=== PATIENT | female | born 1960 | race African-American/Black ===

== ENCOUNTER 2018-03-01 16:01 | Emergency (ER) | payer MEDICAID ==
[~2018-03-01] VITALS: Ht 152.4 cm; Wt 45.0 kg
[2018-03-01] MEDS ORDERED: IOHEXOL-300 100 ML BOTTLE ONE (16:56)
[2018-03-01] MEDS ORDERED: HALOPERIDOL LACTATE 5MG/ML VIAL IM ONE (17:45)
[2018-03-01] MEDS ORDERED: LORAZEPAM 2MG/ML CPJ IM ONE ×2 (17:45)
[2018-03-01] MEDS ORDERED: LIDOCAINE HCL 1% 20ML VIAL (Pyxis) INJ MC ONE (17:45)
[2018-03-01] MEDS ORDERED: TETANUS, DIPHTHERIA, PERTUSSIS VAC/PF 0.5ML (>7YR OLD) IM ONE (17:45)
[2018-03-01] MEDS ORDERED: BACITRACIN ZINC OINT UDPKT TOP ONE (17:45)
[2018-03-01 18:04] LABS: BASOPHILS % 0.5 % (0.0-2.0); CHLORIDE 111 mEq/L (98-107); EOSINOPHILS % 1.2 % (0.0-5.0); HEMATOCRIT. 28.9 % (36.0-48.0); HEMOGLOBIN. 9.9 g/dL (12.0-16.0); LYMPHOCYTES % 32.3 % (20.0-50.0); MEAN CORPUSCULAR HEMOGLOBIN 30.6 pg (28.0-32.0); MEAN CORPUSCULAR VOLUME 89.4 fL (81.0-99.0); MEAN PLATELET VOLUME 8.5 fl (7.4-10.4); MONOCYTES % 7.4 % (2.0-8.0); NEUTROPHILS % 58.6 % (40.0-76.0); PLATELET 215 x1000/uL (130-400); RED BLOOD CELL COUNT 3.23 mill/uL (4.2-5.4); RED CELL DISTRIBUTION WIDTH 15.4 % (11.6-14.6)
[2018-03-01] MEDS ORDERED: OLANZAPINE 10 MG/VIAL IM ONE (18:30)
[2018-03-01] MEDS ORDERED: LIDOCAINE HCL/PF 1% 10 MG/ML 30ML VIAL IJ SCH (19:30)
[2018-03-01 22:55] VITALS: BP 105/71
== END 2018-03-01 23:05 ==
LOC: ER 16:24
DX: S01.81XA Laceration without foreign body of other part of head, initial encounter (principal); J32.2 Chronic ethmoidal sinusitis; M85.2 Hyperostosis of skull; F41.9 Anxiety disorder, unspecified; E11.9 Type 2 diabetes mellitus without complications; K21.9 Gastro-esophageal reflux disease without esophagitis; E78.00 Pure hypercholesterolemia, unspecified; F20.9 Schizophrenia, unspecified; G40.909 Epilepsy, unspecified, not intractable, without status epilepticus; I12.9 Hypertensive chronic kidney disease with stage 1 through stage 4 chronic kidney disease, or unspecified chronic kidney disease; N18.9 Chronic kidney disease, unspecified; F32.9 Major depressive disorder, single episode, unspecified; W01.0XXA Fall on same level from slipping, tripping and stumbling without subsequent striking against object, initial encounter; Y93.89 Activity, other specified; Y92.89 Other specified places as the place of occurrence of the external cause
CPT/HCPCS: 36415; 70450; 70486; 80053; 85025; 90471; 90715; 93005; 96372; 99285; J1630; J2060; J3490; Q9967; X7700; Z7610

== ENCOUNTER 2018-07-25 10:16 | Emergency (ER) | payer MEDICAID ==
[~2018-07-25] VITALS: Ht 162.6 cm; Wt 55.0 kg
[2018-07-25] MEDS ORDERED: TETANUS, DIPHTHERIA, PERTUSSIS VAC/PF 0.5ML (>7YR OLD) IM ONE (10:45)
[2018-07-25] MEDS ORDERED: LIDOCAINE/EPINEPHR/TETRACAINE 3ML TP ONE ×2 (10:45)
[2018-07-25 11:40] LABS: BASOPHILS % 0.5 % (0.0-2.0); CHLORIDE 107 mEq/L (98-107); EOSINOPHILS % 0.9 % (0.0-5.0); HEMATOCRIT. 35.4 % (36.0-48.0); HEMOGLOBIN. 11.7 g/dL (12.0-16.0); LYMPHOCYTES % 36.8 % (20.0-50.0); MEAN CORPUSCULAR HEMOGLOBIN 29.8 pg (28.0-32.0); MEAN CORPUSCULAR VOLUME 89.7 fL (81.0-99.0); MEAN PLATELET VOLUME 9.3 fl (7.4-10.4); MONOCYTES % 7.2 % (2.0-8.0); NEUTROPHILS % 54.6 % (40.0-76.0); PLATELET 171 x1000/uL (130-400); RED BLOOD CELL COUNT 3.94 mill/uL (4.2-5.4); RED CELL DISTRIBUTION WIDTH 13.3 % (11.6-14.6)
[2018-07-25] MEDS ORDERED: MIDAZOLAM HCL 2 MG/2 ML VIAL IV ONE (11:45)
[2018-07-25 15:08] VITALS: BP 125/89
== END 2018-07-25 15:28 ==
LOC: ER 10:36
DX: S01.01XA Laceration without foreign body of scalp, initial encounter (principal); F41.9 Anxiety disorder, unspecified; E11.9 Type 2 diabetes mellitus without complications; E78.00 Pure hypercholesterolemia, unspecified; I10 Essential (primary) hypertension; N28.9 Disorder of kidney and ureter, unspecified; F20.9 Schizophrenia, unspecified; R56.9 Unspecified convulsions; F32.9 Major depressive disorder, single episode, unspecified; K21.9 Gastro-esophageal reflux disease without esophagitis; R62.7 Adult failure to thrive; W18.39XA Other fall on same level, initial encounter; Y93.89 Activity, other specified; Y92.89 Other specified places as the place of occurrence of the external cause; Y99.8 Other external cause status
CPT/HCPCS: 12002; 36415; 70450; 71045; 80053; 83880; 84484; 85025; 90471; 90715; 93005; 96374; 99285; J2250; Z7610

== ENCOUNTER 2020-01-31 09:01 | Inpatient (IN) | payer MEDICAID ==
[~2020-01-31] VITALS: Ht 165.1 cm; Wt 47.2 kg
[2020-01-31] VITALS (47 sets, daily range): BP systolic 82–112; BP diastolic 46–80
[2020-01-31] MEDS ORDERED: SODIUM CHLORIDE 0.9% 1000ML BAG (SEPSIS BOLUS) IV ONE (09:45)
[2020-01-31] MEDS ORDERED: PIPERACILLIN/TAZ 3.375G PREMIX 50 ML IV ONE (09:45)
[2020-01-31 09:49] LABS: HEMATOCRIT. 33.3 % (36.0-48.0); HEMOGLOBIN. 11.1 g/dL (12.0-16.0); MEAN CORPUSCULAR HEMOGLOBIN 29.5 pg (28.0-32.0); MEAN CORPUSCULAR VOLUME 88.2 fL (81.0-99.0); MEAN PLATELET VOLUME 9.5 fl (7.4-10.4); PLATELET 244 x1000/uL (130-400); RED BLOOD CELL COUNT 3.77 mill/uL (4.2-5.4); RED CELL DISTRIBUTION WIDTH 14.6 % (11.6-14.6)
[2020-01-31 09:51] LABS: CHLORIDE 111 mEq/L (98-107)
[2020-01-31 09:53] LABS: PROTHROMBIN TIME 10.4 sec (9.6-11.0)
[2020-01-31 09:57] LABS: CLARITY URINE CLEAR (CLEAR); COLOR URINE YELLOW (YELLOW); KETONES URINE NEGATIVE (NEGATIVE); LEUKOCYTE ESTERASE URINE NEGATIVE (NEGATIVE); NITRITE URINE NEGATIVE (NEGATIVE); OCCULT BLOOD URINE NEGATIVE (NEGATIVE); PH URINE 7.5 (4.5-8.0); PROTEIN URINE 1+ (NEGATIVE); SPECIFIC GRAVITY URINE 1.018 (1.005-1.030)
[2020-01-31] MEDS ORDERED: ACETAMINOPHEN 650MG SUPP PR ONE (10:15)
[2020-01-31] MEDS ORDERED: HALOPERIDOL LACTATE 5MG/ML VIAL IM ONE (10:15)
[2020-01-31 10:43] LABS: PLATELET ESTIMATE NORMAL
[2020-01-31] MEDS ORDERED: OLANZAPINE 10 MG/VIAL IM ONE (10:45)
[2020-01-31] MEDS ORDERED: LORAZEPAM 2MG/ML CPJ IV ONE (11:15)
[2020-01-31] MEDS ORDERED: SUCCINYLCHOLINE CHLORIDE 200MG/10ML IV ONE (11:44)
[2020-01-31] MEDS ORDERED: ETOMIDATE 2MG/ML 10ML VIAL IV ONE (11:44)
[2020-01-31] MEDS ORDERED: NOREPINEPHRINE 4MG/250ML PMX 250 ML IV ONE (11:53)
[2020-01-31] MEDS ORDERED: NOREPINEPHRINE 4 MG in DEXT 5% WATER 246 ML IV ONE (12:00)
[2020-01-31] MEDS ORDERED: PROPOFOL 10MG/ML 100ML 100 ML IV ONE (12:00)
[2020-01-31] MEDS ORDERED: CEFTRIAXONE 1 G PREMIX 50 ML IV SCH (12:15)
[2020-01-31] MEDS ORDERED: METOCLOPRAMIDE HCL 10MG/2ML VIAL IV PRN (12:15)
[2020-01-31] MEDS ORDERED: PHENYLEPHRINE 10 MG in DEXT 5% WATER 249 ML IV PRN (12:15)
[2020-01-31 13:42] LABS: BG BASE EXCESS -4.4 mmol/L (-2.0-2.0); BG CARBOXYHEMOGLOBIN 0.2 % (0.5-1.5); BG DEOXYHEMOGLOBIN 0.4 % (0.0-5.0); BG HCO3 ACT 19.8 mmol/L (22.0-26.0); BG METHEMOGLOBIN 0.3 % (0.0-1.5); BG OXYGEN SATURATION 99.6 % (92.0-98.5); BG OXYHEMOGLOBIN 99.1 % (94.0-97.0); BG PCO2 33.2 mmHg (35.0-45.0); BG PH 7.394 (7.350-7.450); BG PO2 427.8 mmHg (75.0-100.0); BG SAMPLE SITE RIGHT BRACHIAL; BG TIDAL VOLUME(mL) 400 mL; BG TOTAL HEMOGLOBIN 10.4 g/dL (12.0-18.0); BG VENT MODE VENT - A/C; BG VENT RATE 16 set
[2020-01-31] MEDS ORDERED: CEFTRIAXONE 1,000 MG in DEXTROSE 5% WATER 50 ML IV SCH (14:00)
[2020-01-31] MEDS ORDERED: PROPOFOL 10MG/ML 100ML 100 ML IV PRN (14:00)
[2020-01-31] MEDS ORDERED: PHENYLEPHRINE 40 MG in DEXT 5% WATER 246 ML IV PRN (14:15)
[2020-01-31] MEDS ORDERED: SODIUM CHLORIDE 0.45% 1,000 ML IV SCH (14:30)
[2020-01-31] MEDS ORDERED: AZITHROMYCIN 500 MG in DEXT 5% WATER 250 ML IV NR ×3 (15:00→19:30)
[2020-01-31] MEDS ORDERED: BENZ1TAB7 PO (15:12)
[2020-01-31] MEDS ORDERED: TOPI100T37 PO (15:12)
[2020-01-31] MEDS ORDERED: FERR325T6 MT (15:12)
[2020-01-31] MEDS ORDERED: DIVA250T4 PO (15:16)
[2020-01-31] MEDS ORDERED: SERT50TA PO (15:16)
[2020-01-31] MEDS ORDERED: QUET200T MT (15:16)
[2020-01-31] MEDS: CEFEPIME 1,000 MG in DEXTROSE 5% WATER 50 ML IV SCH (17:59)
[2020-01-31] MEDS: THIAMINE HCL 100MG TABLET PO SCH (17:59)
[2020-01-31] MEDS: ENOXAPARIN 30MG/0.3ML SYR SUBCUT SCH (18:00)
[2020-01-31] MEDS: ASCORBIC ACID 500 MG TABLET PO SCH (20:54)
[2020-01-31] MEDS ORDERED: HYDROXYCHLOROQUINE SULFATE 200MG TABLET PO SCH (21:00)
[2020-02-01] VITALS (94 sets, daily range): BP systolic 77–144; BP diastolic 40–86
[2020-02-01] MEDS: CEFEPIME 1,000 MG in DEXTROSE 5% WATER 50 ML IV SCH ×2 (04:43→16:11)
[2020-02-01 05:45] LABS: BASOPHILS % 0.1 % (0.0-2.0); HEMATOCRIT. 27.9 % (36.0-48.0); HEMOGLOBIN. 9.4 g/dL (12.0-16.0); LYMPHOCYTES % 8.4 % (20.0-50.0); MEAN CORPUSCULAR HEMOGLOBIN 29.3 pg (28.0-32.0); MEAN CORPUSCULAR VOLUME 86.8 fL (81.0-99.0); MEAN PLATELET VOLUME 8.3 fl (7.4-10.4); MONOCYTES % 1.7 % (2.0-8.0); NEUTROPHILS % 89.8 % (40.0-76.0); PLATELET 250 x1000/uL (130-400); RED BLOOD CELL COUNT 3.22 mill/uL (4.2-5.4); RED CELL DISTRIBUTION WIDTH 14.5 % (11.6-14.6)
[2020-02-01 05:53] LABS: CHLORIDE 115 mEq/L (98-107)
[2020-02-01] MEDS ORDERED: LIDOCAINE HCL 1% 20ML VIAL (Pyxis) INJ ONE (08:14)
[2020-02-01] MEDS: ASCORBIC ACID 500 MG TABLET PO SCH ×2 (09:15→21:18)
[2020-02-01] MEDS: THIAMINE HCL 100MG TABLET PO SCH ×2 (09:15→16:11)
[2020-02-01] MEDS: PANTOPRAZOLE SODIUM 40 MG/VIAL IV SCH (09:15)
[2020-02-01] MEDS: ZINC SULFATE 220 MG ( 50 ) CAPSULE PO SCH (09:15)
[2020-02-01 10:12] LABS: BG BASE EXCESS 0.2 mmol/L (-2.0-2.0); BG CARBOXYHEMOGLOBIN 0.3 % (0.5-1.5); BG DEOXYHEMOGLOBIN 1.1 % (0.0-5.0); BG FRACTION INSPIRED OXYGEN 50; BG HCO3 ACT 23.4 mmol/L (22.0-26.0); BG METHEMOGLOBIN 0.1 % (0.0-1.5); BG OXYGEN SATURATION 98.9 % (92.0-98.5); BG OXYHEMOGLOBIN 98.5 % (94.0-97.0); BG PCO2 32.4 mmHg (35.0-45.0); BG PH 7.476 (7.350-7.450); BG PO2 141.4 mmHg (75.0-100.0); BG SAMPLE SITE RIGHT BRACHIAL; BG TIDAL VOLUME(mL) 400 mL; BG TOTAL HEMOGLOBIN 9.7 g/dL (12.0-18.0); BG VENT MODE VENT - A/C; BG VENT RATE 16 set
[2020-02-01] MEDS: NOREPINEPHRINE 4 MG in DEXT 5% WATER 246 ML IV PRN (12:04)
[2020-02-01] MEDS: DEXT 5%/0.45% NACL 1000ML 1,000 ML IV SCH (12:04)
[2020-02-01] MEDS ORDERED: AZITHROMYCIN 250 MG in DEXT 5% WATER 250 ML IV SCH ×2 (15:00→18:00)
[2020-02-01] MEDS: PROPOFOL 10MG/ML 100ML 100 ML IV PRN (15:25)
[2020-02-01] MEDS: ENOXAPARIN 30MG/0.3ML SYR SUBCUT SCH (16:11)
[2020-02-01] MEDS ORDERED: HYDROXYCHLOROQUINE SULFATE 200MG TABLET PO SCH (21:00)
[2020-02-01] MEDS: ACETAMINOPHEN 325MG TABLET PO PRN (21:15)
[2020-02-01] MEDS ORDERED: MORPHINE SULFATE 2 MG/ML CPJ (NOT FOR IM USE) IV PRN (21:45)
[2020-02-02] VITALS (93 sets, daily range): BP systolic 56–152; BP diastolic 34–91
[2020-02-02] MEDS: NOREPINEPHRINE 4 MG in DEXT 5% WATER 246 ML IV PRN ×2 (00:03→08:55)
[2020-02-02] MEDS: CEFEPIME 1,000 MG in DEXTROSE 5% WATER 50 ML IV SCH ×2 (03:08→15:58)
[2020-02-02 04:53] LABS: HEMOGLOBIN. 10.1 g/dL (12.0-16.0); MEAN CORPUSCULAR HEMOGLOBIN 29.4 pg (28.0-32.0); MEAN CORPUSCULAR VOLUME 87.4 fL (81.0-99.0); MEAN PLATELET VOLUME 7.8 fl (7.4-10.4); PLATELET 282 x1000/uL (130-400); RED BLOOD CELL COUNT 3.43 mill/uL (4.2-5.4); RED CELL DISTRIBUTION WIDTH 14.6 % (11.6-14.6)
[2020-02-02 05:31] LABS: CHLORIDE 109 mEq/L (98-107)
[2020-02-02 05:45] LABS: PHOSPHORUS 2.8 mg/dL (2.5-4.9)
[2020-02-02 07:59] LABS: BG BASE EXCESS 0.2 mmol/L (-2.0-2.0); BG CARBOXYHEMOGLOBIN 0.3 % (0.5-1.5); BG DEOXYHEMOGLOBIN 1.1 % (0.0-5.0); BG HCO3 ACT 23.4 mmol/L (22.0-26.0); BG METHEMOGLOBIN 0.1 % (0.0-1.5); BG OXYGEN SATURATION 98.9 % (92.0-98.5); BG OXYHEMOGLOBIN 98.5 % (94.0-97.0); BG PCO2 32.9 mmHg (35.0-45.0); BG PO2 137.5 mmHg (75.0-100.0); BG SAMPLE SITE RIGHT BRACHIAL; BG TIDAL VOLUME(mL) 400 mL; BG TOTAL HEMOGLOBIN 10.5 g/dL (12.0-18.0); BG VENT MODE VENT - A/C; BG VENT RATE 12 set
[2020-02-02 08:33] LABS: ATYPICAL LYMPHOCYTES 1; PLATELET ESTIMATE NORMAL
[2020-02-02] MEDS: ZINC SULFATE 220 MG ( 50 ) CAPSULE PO SCH (08:52)
[2020-02-02] MEDS: ASCORBIC ACID 500 MG TABLET PO SCH ×2 (08:53→22:01)
[2020-02-02] MEDS: THIAMINE HCL 100MG TABLET PO SCH ×2 (08:53→17:18)
[2020-02-02] MEDS: PANTOPRAZOLE SODIUM 40 MG/VIAL IV SCH (08:53)
[2020-02-02] MEDS: PROPOFOL 10MG/ML 100ML 100 ML IV PRN ×2 (08:54→21:06)
[2020-02-02] MEDS ORDERED: FUROSEMIDE 40MG/4ML VIAL IVP NR (11:45)
[2020-02-02] MEDS: DEXT 5%/0.45% NACL 1000ML 1,000 ML IV SCH (12:24)
[2020-02-02] MEDS: ENOXAPARIN 30MG/0.3ML SYR SUBCUT SCH (15:58)
[2020-02-02] MEDS: NOREPINEPHRINE 8 MG in DEXT 5% WATER 242 ML IV PRN (21:03)
[2020-02-02] MEDS ORDERED: DOPAMINE 800MG PREMIX (DOUBLE) 250 ML IV PRN (21:45)
[2020-02-02] MEDS: EPINEPHRINE 1 MG in SODIUM CHLORIDE 0.9% 249 ML IV PRN (22:18)
[2020-02-03] VITALS (92 sets, daily range): BP systolic 74–145; BP diastolic 51–93
[2020-02-03] MEDS: NOREPINEPHRINE 8 MG in DEXT 5% WATER 242 ML IV PRN ×3 (01:51→17:21)
[2020-02-03] MEDS: DEXT 5%/0.45% NACL 1000ML 1,000 ML IV SCH (01:52)
[2020-02-03] MEDS: CEFEPIME 1,000 MG in DEXTROSE 5% WATER 50 ML IV SCH ×2 (03:45→15:33)
[2020-02-03] MEDS: EPINEPHRINE 1 MG in SODIUM CHLORIDE 0.9% 249 ML IV PRN (05:07)
[2020-02-03 05:42] LABS: HEMATOCRIT. 33.2 % (36.0-48.0); HEMOGLOBIN. 10.9 g/dL (12.0-16.0); MEAN CORPUSCULAR HEMOGLOBIN 28.6 pg (28.0-32.0); MEAN CORPUSCULAR VOLUME 87.1 fL (81.0-99.0); PLATELET 212 x1000/uL (130-400); RED BLOOD CELL COUNT 3.82 mill/uL (4.2-5.4)
[2020-02-03 05:45] LABS: CHLORIDE 106 mEq/L (98-107)
[2020-02-03] MEDS ORDERED: EPINEPHRINE 1 MG in SODIUM CHLORIDE 0.9% 249 ML IV PRN (05:45)
[2020-02-03 05:51] LABS: PHOSPHORUS 2.1 mg/dL (2.5-4.9)
[2020-02-03] MEDS: EPINEPHRINE 4 MG in SODIUM CHLORIDE 0.9% 246 ML IV PRN (06:58)
[2020-02-03] MEDS: ASCORBIC ACID 500 MG TABLET PO SCH ×2 (08:22→20:03)
[2020-02-03] MEDS: THIAMINE HCL 100MG TABLET PO SCH ×2 (08:23→17:25)
[2020-02-03] MEDS: PANTOPRAZOLE SODIUM 40 MG/VIAL IV SCH (08:23)
[2020-02-03] MEDS: ZINC SULFATE 220 MG ( 50 ) CAPSULE PO SCH (08:23)
[2020-02-03 08:27] LABS: BG BASE EXCESS 0.6 mmol/L (-2.0-2.0); BG CARBOXYHEMOGLOBIN 0.3 % (0.5-1.5); BG DEOXYHEMOGLOBIN 1.3 % (0.0-5.0); BG FRACTION INSPIRED OXYGEN 60; BG METHEMOGLOBIN 0.2 % (0.0-1.5); BG OXYGEN SATURATION 98.7 % (92.0-98.5); BG OXYHEMOGLOBIN 98.2 % (94.0-97.0); BG PCO2 34.3 mmHg (35.0-45.0); BG PH 7.463 (7.350-7.450); BG PO2 129.4 mmHg (75.0-100.0); BG SAMPLE SITE RIGHT BRACHIAL; BG TIDAL VOLUME(mL) 400 mL; BG TOTAL HEMOGLOBIN 11.3 g/dL (12.0-18.0); BG VENT MODE VENT - A/C; BG VENT RATE 12 set
[2020-02-03] MEDS: PROPOFOL 10MG/ML 100ML 100 ML IV PRN (10:49)
[2020-02-03] MEDS ORDERED: POTASSIUM CHLORIDE 20MEQ TABLET SR PO SCH (11:30)
[2020-02-03] MEDS ORDERED: FUROSEMIDE 40MG/4ML VIAL IVP SCH (11:30)
[2020-02-03] MEDS ORDERED: FENTANYL CITRATE/PF 500 MCG in SODIUM CHLORIDE 0.9% 40 ML IV PRN (11:45)
[2020-02-03] MEDS ORDERED: PROPOFOL 10MG/ML 100ML 100 ML IV PRN (12:00)
[2020-02-03] MEDS: METHYLPREDNISOLONE SOD SUCC 40 MG/ML VIAL IV SCH ×2 (12:30→23:53)
[2020-02-03 12:46] LABS: PLATELET ESTIMATE NORMAL
[2020-02-03] MEDS ORDERED: MAGNESIUM 2 G PREMIX 50 ML IV SCH (13:00)
[2020-02-03] MEDS ORDERED: FENTANYL CITRATE/PF 1,000 MCG in SODIUM CHLORIDE 0.9% 100 ML IV PRN (14:30)
[2020-02-03] MEDS: ENOXAPARIN 30MG/0.3ML SYR SUBCUT SCH (15:32)
[2020-02-03] MEDS: FENTANYL CITRATE/PF 1,000 MCG in SODIUM CHLORIDE 0.9% 80 ML IV PRN ×2 (16:01→23:40)
[2020-02-03] MEDS: ACETAMINOPHEN 325MG TABLET PO PRN (17:43)
[2020-02-03] MEDS: NOREPINEPHRINE 32 MG in DEXT 5% WATER 468 ML IV PRN (21:29)
[2020-02-04] VITALS (94 sets, daily range): BP systolic 68–130; BP diastolic 37–95
[2020-02-04] MEDS: EPINEPHRINE 4 MG in SODIUM CHLORIDE 0.9% 246 ML IV PRN ×2 (02:35→18:09)
[2020-02-04] MEDS: CEFEPIME 1,000 MG in DEXTROSE 5% WATER 50 ML IV SCH ×2 (03:30→15:30)
[2020-02-04 05:48] LABS: CHLORIDE 106 mEq/L (98-107)
[2020-02-04 05:52] LABS: HEMATOCRIT. 33.1 % (36.0-48.0); HEMOGLOBIN. 11.2 g/dL (12.0-16.0); MEAN CORPUSCULAR HEMOGLOBIN 29.9 pg (28.0-32.0); MEAN CORPUSCULAR VOLUME 88.6 fL (81.0-99.0); RED BLOOD CELL COUNT 3.73 mill/uL (4.2-5.4); RED CELL DISTRIBUTION WIDTH 14.7 % (11.6-14.6)
[2020-02-04 05:58] LABS: PHOSPHORUS 3.2 mg/dL (2.5-4.9)
[2020-02-04] MEDS: FENTANYL CITRATE/PF 1,000 MCG in SODIUM CHLORIDE 0.9% 80 ML IV PRN ×3 (06:19→21:29)
[2020-02-04 08:47] LABS: BG BASE EXCESS -2.1 mmol/L (-2.0-2.0); BG CARBOXYHEMOGLOBIN 0.3 % (0.5-1.5); BG DEOXYHEMOGLOBIN 4.3 % (0.0-5.0); BG FRACTION INSPIRED OXYGEN 40; BG HCO3 ACT 23.6 mmol/L (22.0-26.0); BG METHEMOGLOBIN 0.1 % (0.0-1.5); BG OXYGEN SATURATION 95.7 % (92.0-98.5); BG OXYHEMOGLOBIN 95.3 % (94.0-97.0); BG PCO2 44.2 mmHg (35.0-45.0); BG PH 7.345 (7.350-7.450); BG SAMPLE SITE RIGHT BRACHIAL; BG TIDAL VOLUME(mL) 400 mL; BG TOTAL HEMOGLOBIN 11.6 g/dL (12.0-18.0); BG VENT MODE VENT - A/C; BG VENT RATE 12 set
[2020-02-04] MEDS ORDERED: DEXTROSE 50% WATER 50ML SYRINGE IV PRN (09:30)
[2020-02-04] MEDS: PANTOPRAZOLE SODIUM 40 MG/VIAL IV SCH (09:44)
[2020-02-04] MEDS: THIAMINE HCL 100MG TABLET PO SCH ×2 (09:44→17:00)
[2020-02-04] MEDS: ZINC SULFATE 220 MG ( 50 ) CAPSULE PO SCH (09:44)
[2020-02-04] MEDS: ASCORBIC ACID 500 MG TABLET PO SCH ×2 (10:13→20:42)
[2020-02-04 11:57] LABS: PLATELET 166 x1000/uL (130-400)
[2020-02-04] MEDS: BLOOD SUGAR DIAGNOSTIC STRIP TEST SCH ×3 (11:59→21:08)
[2020-02-04] MEDS: NOREPINEPHRINE 32 MG in DEXT 5% WATER 468 ML IV PRN (12:49)
[2020-02-04] MEDS: METHYLPREDNISOLONE SOD SUCC 40 MG/ML VIAL IV SCH (12:50)
[2020-02-04] MEDS: INSULIN LISPRO 100 UNITS/ML SUBCUT SCH ×3 (12:52→21:24)
[2020-02-04] MEDS: ENOXAPARIN 30MG/0.3ML SYR SUBCUT SCH (15:30)
[2020-02-05] VITALS (97 sets, daily range): BP systolic 56–144; BP diastolic 28–92
[2020-02-05] MEDS: METHYLPREDNISOLONE SOD SUCC 40 MG/ML VIAL IV SCH ×3 (00:11→23:11)
[2020-02-05] MEDS: CEFEPIME 1,000 MG in DEXTROSE 5% WATER 50 ML IV SCH ×2 (04:25→16:02)
[2020-02-05] MEDS: FENTANYL CITRATE/PF 1,000 MCG in SODIUM CHLORIDE 0.9% 80 ML IV PRN ×2 (04:27→11:17)
[2020-02-05] MEDS: INSULIN LISPRO 100 UNITS/ML SUBCUT SCH ×4 (06:34→21:12)
[2020-02-05] MEDS: BLOOD SUGAR DIAGNOSTIC STRIP TEST SCH ×4 (06:49→20:53)
[2020-02-05] MEDS ORDERED: LIDOCAINE HCL 1% 20ML VIAL (Pyxis) INJ ONE (06:59)
[2020-02-05 08:36] LABS: BG BASE EXCESS -1.3 mmol/L (-2.0-2.0); BG CARBOXYHEMOGLOBIN 0.3 % (0.5-1.5); BG DEOXYHEMOGLOBIN 2.8 % (0.0-5.0); BG HCO3 ACT 24.4 mmol/L (22.0-26.0); BG METHEMOGLOBIN 0.3 % (0.0-1.5); BG OXYGEN SATURATION 97.2 % (92.0-98.5); BG OXYHEMOGLOBIN 96.6 % (94.0-97.0); BG PCO2 45.3 mmHg (35.0-45.0); BG PH 7.349 (7.350-7.450); BG PO2 101.1 mmHg (75.0-100.0); BG SAMPLE SITE RIGHT BRACHIAL; BG TIDAL VOLUME(mL) 400 mL; BG TOTAL HEMOGLOBIN 10.7 g/dL (12.0-18.0); BG VENT MODE VENT - A/C; BG VENT RATE 12 set
[2020-02-05] MEDS: NOREPINEPHRINE 32 MG in DEXT 5% WATER 468 ML IV PRN (08:52)
[2020-02-05] MEDS: THIAMINE HCL 100MG TABLET PO SCH ×2 (09:00→17:00)
[2020-02-05] MEDS: ASCORBIC ACID 500 MG TABLET PO SCH ×2 (09:00→20:53)
[2020-02-05] MEDS: ZINC SULFATE 220 MG ( 50 ) CAPSULE PO SCH (09:00)
[2020-02-05] MEDS: PANTOPRAZOLE SODIUM 40 MG/VIAL IV SCH (10:12)
[2020-02-05 12:47] LABS: BG BASE EXCESS 0.5 mmol/L (-2.0-2.0); BG CARBOXYHEMOGLOBIN 0.3 % (0.5-1.5); BG DEOXYHEMOGLOBIN 2.6 % (0.0-5.0); BG HCO3 ACT 26.5 mmol/L (22.0-26.0); BG METHEMOGLOBIN 0.3 % (0.0-1.5); BG OXYGEN SATURATION 97.4 % (92.0-98.5); BG OXYHEMOGLOBIN 96.8 % (94.0-97.0); BG PCO2 48.6 mmHg (35.0-45.0); BG PH 7.355 (7.350-7.450); BG PO2 102.2 mmHg (75.0-100.0); BG SAMPLE SITE RIGHT BRACHIAL; BG TIDAL VOLUME(mL) 400 mL; BG TOTAL HEMOGLOBIN 11.5 g/dL (12.0-18.0); BG VENT MODE VENT - SIMV; BG VENT RATE 10 set
[2020-02-05] MEDS: METOCLOPRAMIDE HCL 10MG/2ML VIAL IV SCH ×3 (13:30→23:11)
[2020-02-05] MEDS: ENOXAPARIN 30MG/0.3ML SYR SUBCUT SCH (14:00)
[2020-02-05 15:29] LABS: BG BASE EXCESS 0.1 mmol/L (-2.0-2.0); BG CARBOXYHEMOGLOBIN 0.1 % (0.5-1.5); BG DEOXYHEMOGLOBIN 1.8 % (0.0-5.0); BG FRACTION INSPIRED OXYGEN 40; BG HCO3 ACT 25.4 mmol/L (22.0-26.0); BG METHEMOGLOBIN 0.1 % (0.0-1.5); BG OXYGEN SATURATION 98.2 % (92.0-98.5); BG PCO2 44.1 mmHg (35.0-45.0); BG PH 7.378 (7.350-7.450); BG PRESSURE SUPPORT 12; BG SAMPLE SITE RIGHT RADIAL; BG TIDAL VOLUME(mL) 600 mL; BG TOTAL HEMOGLOBIN 11.3 g/dL (12.0-18.0); BG VENT MODE VENT - SIMV; BG VENT RATE 6 set
[2020-02-05 17:47] LABS: BG BASE EXCESS 0.6 mmol/L (-2.0-2.0); BG CARBOXYHEMOGLOBIN 0.3 % (0.5-1.5); BG DEOXYHEMOGLOBIN 1.7 % (0.0-5.0); BG FRACTION INSPIRED OXYGEN 40; BG HCO3 ACT 26.6 mmol/L (22.0-26.0); BG METHEMOGLOBIN 0.1 % (0.0-1.5); BG OXYGEN SATURATION 98.3 % (92.0-98.5); BG OXYHEMOGLOBIN 97.9 % (94.0-97.0); BG PCO2 48.9 mmHg (35.0-45.0); BG PH 7.354 (7.350-7.450); BG PO2 128.1 mmHg (75.0-100.0); BG PRESSURE SUPPORT 12; BG SAMPLE SITE RIGHT RADIAL; BG TOTAL HEMOGLOBIN 11.2 g/dL (12.0-18.0); BG VENT MODE VENT - CPAP
[2020-02-06] VITALS (94 sets, daily range): BP systolic 67–146; BP diastolic 38–92
[2020-02-06] MEDS: METOCLOPRAMIDE HCL 10MG/2ML VIAL IV SCH ×4 (05:30→23:54)
[2020-02-06 05:43] LABS: HEMATOCRIT. 31.2 % (36.0-48.0); HEMOGLOBIN. 10.5 g/dL (12.0-16.0); MEAN CORPUSCULAR HEMOGLOBIN 29.4 pg (28.0-32.0); MEAN CORPUSCULAR VOLUME 86.9 fL (81.0-99.0); MEAN PLATELET VOLUME 9.8 fl (7.4-10.4); PLATELET 105 x1000/uL (130-400); RED BLOOD CELL COUNT 3.59 mill/uL (4.2-5.4)
[2020-02-06] MEDS: BLOOD SUGAR DIAGNOSTIC STRIP TEST SCH ×4 (06:26→21:41)
[2020-02-06] MEDS: INSULIN LISPRO 100 UNITS/ML SUBCUT SCH ×4 (06:26→21:00)
[2020-02-06 06:57] LABS: CHLORIDE 108 mEq/L (98-107)
[2020-02-06] MEDS: PANTOPRAZOLE SODIUM 40 MG/VIAL IV SCH (08:28)
[2020-02-06] MEDS: ZINC SULFATE 220 MG ( 50 ) CAPSULE PO SCH (08:28)
[2020-02-06] MEDS: THIAMINE HCL 100MG TABLET PO SCH ×2 (08:28→17:03)
[2020-02-06] MEDS: ASCORBIC ACID 500 MG TABLET PO SCH ×2 (08:30→21:41)
[2020-02-06] MEDS: NOREPINEPHRINE 32 MG in DEXT 5% WATER 468 ML IV PRN (08:32)
[2020-02-06 10:06] LABS: BG BASE EXCESS 1.3 mmol/L (-2.0-2.0); BG CARBOXYHEMOGLOBIN 0.4 % (0.5-1.5); BG DEOXYHEMOGLOBIN 9.3 % (0.0-5.0); BG FRACTION INSPIRED OXYGEN 36; BG HCO3 ACT 23.3 mmol/L (22.0-26.0); BG METHEMOGLOBIN 0.3 % (0.0-1.5); BG OXYGEN SATURATION 90.6 % (92.0-98.5); BG PCO2 28.6 mmHg (35.0-45.0); BG PH 7.528 (7.350-7.450); BG PO2 55.1 mmHg (75.0-100.0); BG SAMPLE SITE RIGHT BRACHIAL; BG TOTAL HEMOGLOBIN 11.7 g/dL (12.0-18.0); BG VENT MODE NASAL CANNULA
[2020-02-06 10:30] LABS: PLATELET ESTIMATE DECREASED
[2020-02-06] MEDS ORDERED: POTASSIUM CHLORIDE 20MEQ TABLET SR PO NR (11:30)
[2020-02-06] MEDS ORDERED: LACTULOSE 20G/30ML UDC PO NR (11:30)
[2020-02-06] MEDS: METHYLPREDNISOLONE SOD SUCC 40 MG/ML VIAL IV SCH ×2 (12:22→23:53)
[2020-02-06] MEDS: MIDODRINE HCL 5MG TABLET PO SCH ×2 (12:24→17:03)
[2020-02-07] VITALS (76 sets, daily range): BP systolic 75–155; BP diastolic 40–104
[2020-02-07] MEDS: METOCLOPRAMIDE HCL 10MG/2ML VIAL IV SCH ×3 (05:55→17:04)
[2020-02-07] MEDS: BLOOD SUGAR DIAGNOSTIC STRIP TEST SCH ×4 (05:58→21:00)
[2020-02-07] MEDS: INSULIN LISPRO 100 UNITS/ML SUBCUT SCH ×4 (06:09→21:00)
[2020-02-07 07:05] LABS: HEMATOCRIT. 28.4 % (36.0-48.0); HEMOGLOBIN. 9.4 g/dL (12.0-16.0); MEAN CORPUSCULAR VOLUME 87.8 fL (81.0-99.0); MEAN PLATELET VOLUME 10.8 fl (7.4-10.4); PLATELET 92 x1000/uL (130-400); RED BLOOD CELL COUNT 3.23 mill/uL (4.2-5.4); RED CELL DISTRIBUTION WIDTH 13.9 % (11.6-14.6)
[2020-02-07 07:24] LABS: CHLORIDE 112 mEq/L (98-107)
[2020-02-07] MEDS: ASCORBIC ACID 500 MG TABLET PO SCH ×2 (08:21→20:34)
[2020-02-07] MEDS: PANTOPRAZOLE SODIUM 40 MG/VIAL IV SCH (08:22)
[2020-02-07] MEDS: MIDODRINE HCL 5MG TABLET PO SCH ×3 (08:22→17:05)
[2020-02-07] MEDS: THIAMINE HCL 100MG TABLET PO SCH ×2 (08:22→17:05)
[2020-02-07] MEDS: ZINC SULFATE 220 MG ( 50 ) CAPSULE PO SCH (08:22)
[2020-02-07] MEDS ORDERED: ALBUTEROL 6.7GM HFA INHALER ORI PRN (10:00)
[2020-02-07] MEDS ORDERED: LACTULOSE 20G/30ML UDC PO NR (10:00)
[2020-02-07 10:56] LABS: PLATELET ESTIMATE DECREASED
[2020-02-07] MEDS ORDERED: MIDODRINE HCL 5MG TABLET PO SCH (13:00)
[2020-02-07] MEDS: RISPERIDONE 0.5MG TABLET PO SCH ×2 (13:31→17:05)
[2020-02-07] MEDS: LORAZEPAM 2MG/ML CPJ IV PRN ×2 (13:32→22:57)
[2020-02-07] MEDS ORDERED: LORAZEPAM 2MG/ML CPJ IV NR (15:00)
[2020-02-07] MEDS: MORPHINE SULFATE 4 MG/ML CPJ (NOT FOR IM USE) IV PRN (20:25)
[2020-02-08] VITALS (66 sets, daily range): BP systolic 71–112; BP diastolic 51–97
[2020-02-08] MEDS: NOREPINEPHRINE 32 MG in DEXT 5% WATER 468 ML IV PRN (00:11)
[2020-02-08] MEDS: METOCLOPRAMIDE HCL 10MG/2ML VIAL IV SCH ×4 (00:12→17:41)
[2020-02-08] MEDS: MORPHINE SULFATE 4 MG/ML CPJ (NOT FOR IM USE) IV PRN ×2 (01:33→08:03)
[2020-02-08] MEDS: INSULIN LISPRO 100 UNITS/ML SUBCUT SCH ×4 (06:59→21:18)
[2020-02-08] MEDS: BLOOD SUGAR DIAGNOSTIC STRIP TEST SCH ×4 (07:00→21:19)
[2020-02-08] MEDS: ASCORBIC ACID 500 MG TABLET PO SCH ×2 (08:02→20:51)
[2020-02-08] MEDS: RISPERIDONE 0.5MG TABLET PO SCH ×2 (08:02→17:41)
[2020-02-08] MEDS: PANTOPRAZOLE SODIUM 40 MG/VIAL IV SCH (08:02)
[2020-02-08] MEDS: ZINC SULFATE 220 MG ( 50 ) CAPSULE PO SCH (08:02)
[2020-02-08] MEDS: THIAMINE HCL 100MG TABLET PO SCH ×2 (08:02→17:41)
[2020-02-08] MEDS: MIDODRINE HCL 5MG TABLET PO SCH ×3 (08:02→17:41)
[2020-02-08] MEDS: LORAZEPAM 2MG/ML CPJ IV PRN (12:31)
[2020-02-09] VITALS (65 sets, daily range): BP systolic 77–128; BP diastolic 45–79
[2020-02-09] MEDS: METOCLOPRAMIDE HCL 10MG/2ML VIAL IV SCH ×5 (00:42→23:56)
[2020-02-09] MEDS: LORAZEPAM 2MG/ML CPJ IV PRN ×2 (00:52→21:12)
[2020-02-09] MEDS: MORPHINE SULFATE 4 MG/ML CPJ (NOT FOR IM USE) IV PRN ×2 (04:36→22:32)
[2020-02-09] MEDS: BLOOD SUGAR DIAGNOSTIC STRIP TEST SCH ×4 (06:54→21:13)
[2020-02-09] MEDS: INSULIN LISPRO 100 UNITS/ML SUBCUT SCH ×4 (06:55→21:00)
[2020-02-09] MEDS: NOREPINEPHRINE 32 MG in DEXT 5% WATER 468 ML IV PRN (08:20)
[2020-02-09] MEDS: RISPERIDONE 0.5MG TABLET PO SCH ×2 (09:28→17:09)
[2020-02-09] MEDS: MIDODRINE HCL 5MG TABLET PO SCH ×3 (09:31→17:09)
[2020-02-09] MEDS: ZINC SULFATE 220 MG ( 50 ) CAPSULE PO SCH (09:52)
[2020-02-09] MEDS: ASCORBIC ACID 500 MG TABLET PO SCH ×2 (10:00→21:12)
[2020-02-09] MEDS: PANTOPRAZOLE SODIUM 40 MG/VIAL IV SCH (11:11)
[2020-02-09] MEDS: THIAMINE HCL 100MG TABLET PO SCH ×2 (11:11→17:09)
[2020-02-09 16:26] LABS: HEMATOCRIT. 24.9 % (36.0-48.0); HEMOGLOBIN. 8.1 g/dL (12.0-16.0); MEAN CORPUSCULAR HEMOGLOBIN 28.8 pg (28.0-32.0); MEAN CORPUSCULAR VOLUME 88.9 fL (81.0-99.0); MEAN PLATELET VOLUME 10.8 fl (7.4-10.4); PLATELET 73 x1000/uL (130-400); RED CELL DISTRIBUTION WIDTH 14.2 % (11.6-14.6)
[2020-02-09 16:31] LABS: CHLORIDE 113 mEq/L (98-107)
[2020-02-09 16:55] LABS: PLATELET ESTIMATE DECREASED
[2020-02-10] VITALS (89 sets, daily range): BP systolic 81–131; BP diastolic 50–82
[2020-02-10] MEDS: METOCLOPRAMIDE HCL 10MG/2ML VIAL IV SCH ×3 (06:11→17:21)
[2020-02-10] MEDS: BLOOD SUGAR DIAGNOSTIC STRIP TEST SCH ×4 (06:11→21:00)
[2020-02-10] MEDS: INSULIN LISPRO 100 UNITS/ML SUBCUT SCH ×4 (06:12→21:00)
[2020-02-10] MEDS: THIAMINE HCL 100MG TABLET PO SCH ×2 (08:47→16:33)
[2020-02-10] MEDS: PANTOPRAZOLE SODIUM 40 MG/VIAL IV SCH (08:47)
[2020-02-10] MEDS: RISPERIDONE 0.5MG TABLET PO SCH ×2 (08:47→16:34)
[2020-02-10] MEDS: ZINC SULFATE 220 MG ( 50 ) CAPSULE PO SCH (09:18)
[2020-02-10] MEDS: ASCORBIC ACID 500 MG TABLET PO SCH ×2 (09:19→22:07)
[2020-02-10] MEDS: MIDODRINE HCL 5MG TABLET PO SCH ×3 (10:40→16:35)
[2020-02-10] MEDS ORDERED: ALBUMIN HUMAN 25GM/100ML (25%) IV NR (11:00)
[2020-02-10] MEDS: LORAZEPAM 2MG/ML CPJ IV PRN (16:42)
[2020-02-10] MEDS ORDERED: INSULIN LISPRO 100 UNITS/ML SUBCUT ONE (19:30)
[2020-02-11] VITALS (91 sets, daily range): BP systolic 91–128; BP diastolic 53–88
[2020-02-11] MEDS: METOCLOPRAMIDE HCL 10MG/2ML VIAL IV SCH ×4 (00:46→17:41)
[2020-02-11] MEDS: BLOOD SUGAR DIAGNOSTIC STRIP TEST SCH ×4 (06:30→21:16)
[2020-02-11] MEDS: MIDODRINE HCL 5MG TABLET PO SCH ×3 (09:06→17:42)
[2020-02-11] MEDS: THIAMINE HCL 100MG TABLET PO SCH ×2 (09:06→17:41)
[2020-02-11] MEDS: PANTOPRAZOLE SODIUM 40 MG/VIAL IV SCH (09:06)
[2020-02-11] MEDS: ASCORBIC ACID 500 MG TABLET PO SCH ×2 (09:06→21:16)
[2020-02-11] MEDS: RISPERIDONE 0.5MG TABLET PO SCH ×2 (09:07→17:41)
[2020-02-11] MEDS: ZINC SULFATE 220 MG ( 50 ) CAPSULE PO SCH (09:08)
[2020-02-11] MEDS ORDERED: ALBUMIN HUMAN 25GM/100ML (25%) IV NR (12:00)
[2020-02-11] MEDS: INSULIN LISPRO 100 UNITS/ML SUBCUT SCH ×3 (12:32→21:00)
[2020-02-12] VITALS (71 sets, daily range): BP systolic 89–131; BP diastolic 63–97
[2020-02-12] MEDS: METOCLOPRAMIDE HCL 10MG/2ML VIAL IV SCH ×4 (00:12→17:08)
[2020-02-12 05:41] LABS: HEMATOCRIT. 25.2 % (36.0-48.0); HEMOGLOBIN. 8.2 g/dL (12.0-16.0); MEAN CORPUSCULAR HEMOGLOBIN 29.1 pg (28.0-32.0); MEAN CORPUSCULAR VOLUME 89.3 fL (81.0-99.0); MEAN PLATELET VOLUME 11.5 fl (7.4-10.4); PLATELET 97 x1000/uL (130-400); RED BLOOD CELL COUNT 2.82 mill/uL (4.2-5.4); RED CELL DISTRIBUTION WIDTH 14.5 % (11.6-14.6)
[2020-02-12 05:42] LABS: CHLORIDE 114 mEq/L (98-107)
[2020-02-12] MEDS: BLOOD SUGAR DIAGNOSTIC STRIP TEST SCH ×4 (06:30→21:32)
[2020-02-12] MEDS: INSULIN LISPRO 100 UNITS/ML SUBCUT SCH ×4 (07:00→21:00)
[2020-02-12] MEDS: PANTOPRAZOLE SODIUM 40 MG/VIAL IV SCH (08:47)
[2020-02-12] MEDS: ASCORBIC ACID 500 MG TABLET PO SCH ×2 (08:48→21:36)
[2020-02-12] MEDS: ZINC SULFATE 220 MG ( 50 ) CAPSULE PO SCH (08:48)
[2020-02-12] MEDS: THIAMINE HCL 100MG TABLET PO SCH ×2 (08:49→17:07)
[2020-02-12] MEDS: MIDODRINE HCL 5MG TABLET PO SCH ×3 (08:49→17:06)
[2020-02-12] MEDS: RISPERIDONE 0.5MG TABLET PO SCH ×2 (08:50→17:07)
[2020-02-12 10:30] LABS: PLATELET ESTIMATE DECREASED
[2020-02-12] MEDS: ACETAMINOPHEN 325MG TABLET PO PRN (23:01)
[2020-02-13] VITALS (15 sets, daily range): BP systolic 77–119; BP diastolic 52–80
[2020-02-13] MEDS: METOCLOPRAMIDE HCL 10MG/2ML VIAL IV SCH ×4 (00:27→17:08)
[2020-02-13 00:51] LABS: BG BASE EXCESS 6.3 mmol/L (-2.0-2.0); BG CARBOXYHEMOGLOBIN 1.8 % (0.5-1.5); BG FRACTION INSPIRED OXYGEN 100; BG HCO3 ACT 30.8 mmol/L (22.0-26.0); BG METHEMOGLOBIN 0.3 % (0.0-1.5); BG OXYHEMOGLOBIN 96.9 % (94.0-97.0); BG PCO2 44.4 mmHg (35.0-45.0); BG PH 7.459 (7.350-7.450); BG PO2 117.1 mmHg (75.0-100.0); BG SAMPLE SITE LEFT RADIAL; BG TOTAL HEMOGLOBIN 8.7 g/dL (12.0-18.0); BG VENT MODE MASK - NRB
[2020-02-13] MEDS: CEFEPIME 2,000 MG in DEXT 5% WATER 100 ML IV SCH ×2 (00:57→13:26)
[2020-02-13] MEDS ORDERED: FUROSEMIDE 40MG/4ML VIAL IVP SCH (01:15)
[2020-02-13] MEDS: DOXYCYCLINE 100 MG in DEXT 5% WATER 100 ML IV SCH ×2 (01:25→14:39)
[2020-02-13] MEDS: BLOOD SUGAR DIAGNOSTIC STRIP TEST SCH ×6 (08:10→22:04)
[2020-02-13] MEDS: ASCORBIC ACID 500 MG TABLET PO SCH (08:18)
[2020-02-13] MEDS: MIDODRINE HCL 5MG TABLET PO SCH ×3 (08:18→16:36)
[2020-02-13] MEDS: ZINC SULFATE 220 MG ( 50 ) CAPSULE PO SCH (08:18)
[2020-02-13] MEDS: PANTOPRAZOLE SODIUM 40 MG/VIAL IV SCH (08:19)
[2020-02-13] MEDS: INSULIN LISPRO 100 UNITS/ML SUBCUT SCH ×4 (08:19→21:00)
[2020-02-13] MEDS: THIAMINE HCL 100MG TABLET PO SCH (08:19)
[2020-02-13] MEDS: RISPERIDONE 0.5MG TABLET PO SCH ×2 (08:19→16:36)
[2020-02-13] MEDS ORDERED: LORAZEPAM 2MG/ML CPJ IV PRN (10:45)
[2020-02-13 15:07] LABS: HEMATOCRIT. 24.9 % (36.0-48.0); HEMOGLOBIN. 8.2 g/dL (12.0-16.0); MEAN CORPUSCULAR VOLUME 88.4 fL (81.0-99.0); MEAN PLATELET VOLUME 10.6 fl (7.4-10.4); PLATELET 115 x1000/uL (130-400); RED BLOOD CELL COUNT 2.81 mill/uL (4.2-5.4); RED CELL DISTRIBUTION WIDTH 14.3 % (11.6-14.6)
[2020-02-13 15:20] LABS: CHLORIDE 112 mEq/L (98-107)
[2020-02-13 15:32] LABS: CREATINE KINASE MB FRACTION 10.1 ng/mL (0.5-3.6)
[2020-02-13 16:44] LABS: PLATELET ESTIMATE DECREASED
[2020-02-13] MEDS: ALBUTEROL 6.7GM HFA INHALER ORI SCH (20:00)
[2020-02-14] VITALS: BP 115/60
[2020-02-14] MEDS: CEFEPIME 2,000 MG in DEXT 5% WATER 100 ML IV SCH ×2 (01:07→12:57)
[2020-02-14] MEDS: METOCLOPRAMIDE HCL 10MG/2ML VIAL IV SCH ×4 (01:09→17:21)
[2020-02-14] MEDS: ALBUTEROL 6.7GM HFA INHALER ORI SCH ×4 (01:29→20:00)
[2020-02-14] MEDS: DOXYCYCLINE 100 MG in DEXT 5% WATER 100 ML IV SCH ×2 (03:04→15:13)
[2020-02-14 04:00] VITALS: BP 129/71
[2020-02-14 06:46] LABS: HEMATOCRIT. 25.5 % (36.0-48.0); HEMOGLOBIN. 8.3 g/dL (12.0-16.0); MEAN CORPUSCULAR HEMOGLOBIN 29.1 pg (28.0-32.0); MEAN CORPUSCULAR VOLUME 89.5 fL (81.0-99.0); PLATELET 130 x1000/uL (130-400); RED BLOOD CELL COUNT 2.84 mill/uL (4.2-5.4); RED CELL DISTRIBUTION WIDTH 14.5 % (11.6-14.6)
[2020-02-14] MEDS: BLOOD SUGAR DIAGNOSTIC STRIP TEST SCH ×4 (07:04→20:43)
[2020-02-14 07:21] LABS: CHLORIDE 111 mEq/L (98-107)
[2020-02-14] MEDS: MIDODRINE HCL 5MG TABLET PO SCH ×3 (09:00→17:27)
[2020-02-14] MEDS: RISPERIDONE 0.5MG TABLET PO SCH ×2 (09:45→17:21)
[2020-02-14] MEDS: PANTOPRAZOLE SODIUM 40 MG/VIAL IV SCH (09:45)
[2020-02-14] MEDS: ZINC SULFATE 220 MG ( 50 ) CAPSULE PO SCH (09:46)
[2020-02-14] MEDS: INSULIN LISPRO 100 UNITS/ML SUBCUT SCH ×4 (09:48→21:00)
[2020-02-14 10:45] LABS: PLATELET ESTIMATE NORMAL
[2020-02-14 12:00] VITALS: BP 102/67
[2020-02-14 16:00] VITALS: BP 104/69
[2020-02-14 20:00] VITALS: BP 116/47
[2020-02-14] MEDS ORDERED: VANCOMYCIN 1250MG in DEXTROSE 5% WATER 250ML IV NR (22:30)
[2020-02-15] VITALS: BP 113/65
[2020-02-15] MEDS: METOCLOPRAMIDE HCL 10MG/2ML VIAL IV SCH ×4 (00:57→18:14)
[2020-02-15] MEDS: ALBUTEROL 6.7GM HFA INHALER ORI SCH ×2 (02:00→08:00)
[2020-02-15] MEDS: CEFEPIME 2,000 MG in DEXT 5% WATER 100 ML IV SCH ×2 (02:51→12:49)
[2020-02-15 04:00] VITALS: BP 117/68
[2020-02-15] MEDS: INSULIN LISPRO 100 UNITS/ML SUBCUT SCH ×4 (07:02→20:56)
[2020-02-15] MEDS: BLOOD SUGAR DIAGNOSTIC STRIP TEST SCH ×4 (07:02→20:56)
[2020-02-15 08:00] VITALS: BP 111/62
[2020-02-15] MEDS: ACETYLCYSTEINE 100MG/ML 10% VIAL 4ML INH SCH (08:10)
[2020-02-15] MEDS: RISPERIDONE 0.5MG TABLET PO SCH ×2 (08:43→18:14)
[2020-02-15] MEDS: MIDODRINE HCL 5MG TABLET PO SCH ×3 (08:43→18:14)
[2020-02-15] MEDS: ZINC SULFATE 220 MG ( 50 ) CAPSULE PO SCH (08:43)
[2020-02-15] MEDS ORDERED: DOXYCYCLINE HYCLATE 100MG CAPSULE PO SCH (09:00)
[2020-02-15] MEDS: PANTOPRAZOLE SODIUM 40 MG/VIAL IV SCH (09:06)
[2020-02-15] MEDS: VANCOMYCIN 1 G PREMIX 200 ML IV SCH ×2 (11:36→20:31)
[2020-02-15 12:00] VITALS: BP 96/55
[2020-02-15 16:00] VITALS: BP 119/61
[2020-02-15 20:00] VITALS: BP 112/59
[2020-02-15] MEDS: IPRATROPIUM/ALBUTEROL 0.5-3(2.5)MG/3ML NEB HHN SCH (21:13)
[2020-02-16] VITALS: BP 98/53
[2020-02-16] MEDS: METOCLOPRAMIDE HCL 10MG/2ML VIAL IV SCH ×4 (00:02→17:22)
[2020-02-16] MEDS: CEFEPIME 2,000 MG in DEXT 5% WATER 100 ML IV SCH ×2 (00:02→12:34)
[2020-02-16] MEDS: IPRATROPIUM/ALBUTEROL 0.5-3(2.5)MG/3ML NEB HHN SCH ×6 (00:36→19:46)
[2020-02-16] MEDS: ACETYLCYSTEINE 100MG/ML 10% VIAL 4ML INH SCH ×3 (00:36→19:46)
[2020-02-16 04:00] VITALS: BP 126/67
[2020-02-16] MEDS: BLOOD SUGAR DIAGNOSTIC STRIP TEST SCH ×4 (06:21→20:44)
[2020-02-16 07:07] LABS: CHLORIDE 119 mEq/L (98-107)
[2020-02-16 07:28] LABS: HEMATOCRIT. 22.3 % (36.0-48.0); HEMOGLOBIN. 7.1 g/dL (12.0-16.0); MEAN CORPUSCULAR HEMOGLOBIN 28.6 pg (28.0-32.0); MEAN CORPUSCULAR VOLUME 89.5 fL (81.0-99.0); MEAN PLATELET VOLUME 12.6 fl (7.4-10.4); PLATELET 134 x1000/uL (130-400); RED BLOOD CELL COUNT 2.49 mill/uL (4.2-5.4); RED CELL DISTRIBUTION WIDTH 14.5 % (11.6-14.6)
[2020-02-16 08:00] VITALS: BP 113/61
[2020-02-16] MEDS: MIDODRINE HCL 5MG TABLET PO SCH ×3 (08:26→17:22)
[2020-02-16] MEDS: RISPERIDONE 0.5MG TABLET PO SCH ×2 (08:26→17:22)
[2020-02-16] MEDS: PANTOPRAZOLE SODIUM 40 MG/VIAL IV SCH (08:26)
[2020-02-16] MEDS: ZINC SULFATE 220 MG ( 50 ) CAPSULE PO SCH (08:26)
[2020-02-16] MEDS: INSULIN LISPRO 100 UNITS/ML SUBCUT SCH ×4 (08:27→20:45)
[2020-02-16] MEDS: VANCOMYCIN 1 G PREMIX 200 ML IV SCH (09:14)
[2020-02-16 10:36] LABS: PLATELET ESTIMATE NORMAL
[2020-02-16 12:00] VITALS: BP 132/53
[2020-02-16] MEDS: DEXTROSE 5% WATER 1,000 ML IV SCH (13:40)
[2020-02-16 16:00] VITALS: BP 110/59
[2020-02-16] MEDS: VANCOMYCIN 750 MG PREMIX 150 ML IV SCH (17:22)
[2020-02-16 20:00] VITALS: BP 136/93
[2020-02-16] MEDS: MORPHINE SULFATE 2 MG/ML CPJ (NOT FOR IM USE) IV PRN (20:32)
[2020-02-17] VITALS (8 sets, daily range): BP systolic 87–101; BP diastolic 43–59
[2020-02-17] MEDS: METOCLOPRAMIDE HCL 10MG/2ML VIAL IV SCH ×4 (00:09→17:53)
[2020-02-17] MEDS: CEFEPIME 2,000 MG in DEXT 5% WATER 100 ML IV SCH ×2 (00:09→13:48)
[2020-02-17] MEDS: ACETYLCYSTEINE 100MG/ML 10% VIAL 4ML INH SCH (00:32)
[2020-02-17] MEDS: VANCOMYCIN 750 MG PREMIX 150 ML IV SCH ×2 (01:18→09:10)
[2020-02-17] MEDS: IPRATROPIUM/ALBUTEROL 0.5-3(2.5)MG/3ML NEB HHN SCH ×3 (04:09→20:38)
[2020-02-17] MEDS: BLOOD SUGAR DIAGNOSTIC STRIP TEST SCH ×4 (06:32→20:52)
[2020-02-17] MEDS: INSULIN LISPRO 100 UNITS/ML SUBCUT SCH ×4 (07:37→21:01)
[2020-02-17 07:47] LABS: MEAN CORPUSCULAR HEMOGLOBIN 28.8 pg (28.0-32.0); MEAN CORPUSCULAR VOLUME 91.5 fL (81.0-99.0); MEAN PLATELET VOLUME 11.6 fl (7.4-10.4); PLATELET 113 x1000/uL (130-400); RED BLOOD CELL COUNT 1.86 mill/uL (4.2-5.4); RED CELL DISTRIBUTION WIDTH 15.1 % (11.6-14.6)
[2020-02-17 07:54] LABS: CHLORIDE 119 mEq/L (98-107)
[2020-02-17 08:18] LABS: HEMOGLOBIN. 5.3 g/dL (12.0-16.0)
[2020-02-17] MEDS: MIDODRINE HCL 5MG TABLET PO SCH ×2 (09:10→13:53)
[2020-02-17] MEDS: RISPERIDONE 0.5MG TABLET PO SCH ×2 (09:10→17:53)
[2020-02-17] MEDS: PANTOPRAZOLE SODIUM 40 MG/VIAL IV SCH (09:10)
[2020-02-17] MEDS: ZINC SULFATE 220 MG ( 50 ) CAPSULE PO SCH (09:10)
[2020-02-17 10:31] LABS: PLATELET ESTIMATE DECREASED
[2020-02-17 11:09] LABS: MEAN CORPUSCULAR HEMOGLOBIN 28.7 pg (28.0-32.0); MEAN CORPUSCULAR VOLUME 90.3 fL (81.0-99.0); MEAN PLATELET VOLUME 12.5 fl (7.4-10.4); PLATELET 124 x1000/uL (130-400); RED BLOOD CELL COUNT 2.31 mill/uL (4.2-5.4)
[2020-02-17 11:14] LABS: HEMATOCRIT. 20.9 % (36.0-48.0); HEMOGLOBIN. 6.6 g/dL (12.0-16.0)
[2020-02-17 11:44] LABS: PLATELET ESTIMATE SLIGHTLY DECREASED
[2020-02-17] MEDS: MORPHINE SULFATE 2 MG/ML CPJ (NOT FOR IM USE) IV PRN (16:00)
[2020-02-18] VITALS (12 sets, daily range): BP systolic 100–121; BP diastolic 53–69
[2020-02-18] MEDS: IPRATROPIUM/ALBUTEROL 0.5-3(2.5)MG/3ML NEB HHN SCH ×3 (00:32→09:06)
[2020-02-18] MEDS: CEFEPIME 2,000 MG in DEXT 5% WATER 100 ML IV SCH ×2 (04:03→12:47)
[2020-02-18] MEDS: METOCLOPRAMIDE HCL 10MG/2ML VIAL IV SCH ×3 (04:03→12:49)
[2020-02-18] MEDS: DEXTROSE 5% WATER 1,000 ML IV SCH (04:05)
[2020-02-18] MEDS: ACETYLCYSTEINE 100MG/ML 10% VIAL 4ML INH SCH ×4 (06:08→15:33)
[2020-02-18] MEDS: BLOOD SUGAR DIAGNOSTIC STRIP TEST SCH ×4 (06:37→21:36)
[2020-02-18] MEDS: RISPERIDONE 0.5MG TABLET PO SCH (08:35)
[2020-02-18] MEDS: ZINC SULFATE 220 MG ( 50 ) CAPSULE PO SCH (08:35)
[2020-02-18] MEDS: PANTOPRAZOLE SODIUM 40 MG/VIAL IV SCH (08:36)
[2020-02-18] MEDS: INSULIN LISPRO 100 UNITS/ML SUBCUT SCH ×2 (08:41→12:50)
[2020-02-18] MEDS ORDERED: VANCOMYCIN 750 MG PREMIX 150 ML IV SCH (09:00)
[2020-02-18] MEDS: MIDODRINE HCL 5MG TABLET PO SCH ×2 (09:55→12:47)
[2020-02-18] MEDS: MORPHINE SULFATE 2 MG/ML CPJ (NOT FOR IM USE) IV PRN ×2 (10:34→17:42)
[2020-02-18] MEDS: LORAZEPAM 2MG/ML CPJ IV PRN (12:49)
[2020-02-18] MEDS: DEXTROSE 50% WATER 50ML SYRINGE IV PRN ×2 (13:06→17:20)
[2020-02-19] VITALS: BP 99/64
[2020-02-19 04:00] VITALS: BP 110/63
[2020-02-19] MEDS: MORPHINE SULFATE 2 MG/ML CPJ (NOT FOR IM USE) IV PRN ×3 (04:36→16:03)
[2020-02-19] MEDS: BLOOD SUGAR DIAGNOSTIC STRIP TEST SCH ×4 (06:35→21:00)
[2020-02-19 08:00] VITALS: BP 109/62
[2020-02-19] MEDS: ACETYLCYSTEINE 100MG/ML 10% VIAL 4ML INH SCH (10:05)
[2020-02-19 12:00] VITALS: BP 103/61
[2020-02-19 16:00] VITALS: BP 101/58
[2020-02-19 16:47] LABS: HEMATOCRIT. 32.6 % (36.0-48.0); HEMOGLOBIN. 10.6 g/dL (12.0-16.0); MEAN CORPUSCULAR HEMOGLOBIN 28.6 pg (28.0-32.0); MEAN CORPUSCULAR VOLUME 87.6 fL (81.0-99.0); MEAN PLATELET VOLUME 11.8 fl (7.4-10.4); PLATELET 140 x1000/uL (130-400); RED BLOOD CELL COUNT 3.72 mill/uL (4.2-5.4); RED CELL DISTRIBUTION WIDTH 14.8 % (11.6-14.6)
[2020-02-19 16:53] LABS: CHLORIDE 113 mEq/L (98-107)
[2020-02-19 17:57] LABS: PLATELET ESTIMATE NORMAL
[2020-02-19 20:00] VITALS: BP 93/51
[2020-02-20] VITALS: BP 102/57
[2020-02-20] MEDS: MORPHINE SULFATE 2 MG/ML CPJ (NOT FOR IM USE) IV PRN ×3 (00:13→17:50)
[2020-02-20 04:00] VITALS: BP 113/69
[2020-02-20] MEDS: BLOOD SUGAR DIAGNOSTIC STRIP TEST SCH ×3 (07:19→21:10)
[2020-02-20 08:00] VITALS: BP 108/62
[2020-02-20] MEDS: ACETYLCYSTEINE 100MG/ML 10% VIAL 4ML INH SCH ×2 (10:05→17:55)
[2020-02-20 12:00] VITALS: BP 104/57
[2020-02-20 15:27] LABS: BG BASE EXCESS 3.3 mmol/L (-2.0-2.0); BG CARBOXYHEMOGLOBIN 0.5 % (0.5-1.5); BG DEOXYHEMOGLOBIN 2.8 % (0.0-5.0); BG FRACTION INSPIRED OXYGEN 99.8; BG METHEMOGLOBIN 0.3 % (0.0-1.5); BG OXYGEN SATURATION 97.2 % (92.0-98.5); BG OXYHEMOGLOBIN 96.4 % (94.0-97.0); BG PCO2 43.4 mmHg (35.0-45.0); BG PH 7.428 (7.350-7.450); BG PO2 95.6 mmHg (75.0-100.0); BG SAMPLE SITE RIGHT RADIAL; BG TOTAL HEMOGLOBIN 9.9 g/dL (12.0-18.0); BG VENT MODE MASK - NRB
[2020-02-20] MEDS ORDERED: ONDANSETRON HCL 4MG/2ML INJ IV PRN (15:30)
[2020-02-20 16:00] VITALS: BP 112/66
[2020-02-20 20:00] VITALS: BP 93/59
[2020-02-20] MEDS: IPRATROPIUM/ALBUTEROL 0.5-3(2.5)MG/3ML NEB HHN SCH (21:08)
[2020-02-20] MEDS: VANCOMYCIN 750 MG PREMIX 150 ML IV SCH (21:14)
[2020-02-21] VITALS: BP 89/56
[2020-02-21] MEDS: IPRATROPIUM/ALBUTEROL 0.5-3(2.5)MG/3ML NEB HHN SCH ×3 (02:39→13:15)
[2020-02-21 04:00] VITALS: BP 86/53
[2020-02-21] MEDS: BLOOD SUGAR DIAGNOSTIC STRIP TEST SCH ×4 (06:40→21:00)
[2020-02-21] MEDS: VANCOMYCIN 750 MG PREMIX 150 ML IV SCH ×2 (06:40→16:27)
[2020-02-21 08:00] VITALS: BP 119/67
[2020-02-21] MEDS ORDERED: DEXTROSE 50% WATER 50ML SYRINGE IV PRN (08:45)
[2020-02-21 12:00] VITALS: BP 104/71
[2020-02-21] MEDS: INSULIN LISPRO 100 UNITS/ML SUBCUT SCH ×3 (13:41→21:00)
[2020-02-21 16:00] VITALS: BP 118/64
[2020-02-21 20:00] VITALS: BP 125/63
[2020-02-21] MEDS: MORPHINE SULFATE 2 MG/ML CPJ (NOT FOR IM USE) IV PRN (23:02)
[2020-02-22] VITALS: BP 107/65
[2020-02-22 04:00] VITALS: BP 96/69
[2020-02-22] MEDS: VANCOMYCIN 750 MG PREMIX 150 ML IV SCH ×2 (05:19→17:40)
[2020-02-22 06:33] LABS: HEMATOCRIT. 31.4 % (36.0-48.0); HEMOGLOBIN. 10.1 g/dL (12.0-16.0); MEAN CORPUSCULAR HEMOGLOBIN 28.6 pg (28.0-32.0); MEAN CORPUSCULAR VOLUME 88.3 fL (81.0-99.0); MEAN PLATELET VOLUME 11.4 fl (7.4-10.4); PLATELET 176 x1000/uL (130-400); RED BLOOD CELL COUNT 3.55 mill/uL (4.2-5.4); RED CELL DISTRIBUTION WIDTH 14.4 % (11.6-14.6)
[2020-02-22] MEDS: BLOOD SUGAR DIAGNOSTIC STRIP TEST SCH ×4 (06:58→21:00)
[2020-02-22 07:09] LABS: CHLORIDE 114 mEq/L (98-107)
[2020-02-22 08:00] VITALS: BP 126/75
[2020-02-22] MEDS: INSULIN LISPRO 100 UNITS/ML SUBCUT SCH ×4 (08:16→21:00)
[2020-02-22] MEDS: LORAZEPAM 2MG/ML CPJ IV PRN (08:37)
[2020-02-22] MEDS: IPRATROPIUM/ALBUTEROL 0.5-3(2.5)MG/3ML NEB HHN SCH ×3 (09:26→21:41)
[2020-02-22 12:00] VITALS: BP 105/69
[2020-02-22] MEDS: MORPHINE SULFATE 2 MG/ML CPJ (NOT FOR IM USE) IV PRN ×2 (12:45→17:40)
[2020-02-22 13:15] LABS: PLATELET ESTIMATE NORMAL
[2020-02-22 16:00] VITALS: BP 107/56
[2020-02-22 20:00] VITALS: BP 112/58
[2020-02-23] VITALS: BP 87/51
[2020-02-23] MEDS: IPRATROPIUM/ALBUTEROL 0.5-3(2.5)MG/3ML NEB HHN SCH ×3 (03:05→12:55)
[2020-02-23 04:00] VITALS: BP 96/64
[2020-02-23] MEDS: VANCOMYCIN 750 MG PREMIX 150 ML IV SCH ×2 (06:13→17:25)
[2020-02-23 08:00] VITALS: BP 92/68
[2020-02-23] MEDS ORDERED: LORAZEPAM 2MG/ML CPJ IV PRN (08:45)
[2020-02-23 12:00] VITALS: BP 98/97
[2020-02-23] MEDS: DEXTROSE 5% WATER 1,000 ML IV SCH (13:14)
[2020-02-23 16:00] VITALS: BP 93/61
[2020-02-23] MEDS ORDERED: IPRATROPIUM/ALBUTEROL 0.5-3(2.5)MG/3ML NEB HHN PRN (16:45)
[2020-02-23 20:00] VITALS: BP 91/60
[2020-02-23] MEDS ORDERED: VANCOMYCIN 1 G PREMIX 200 ML IV SCH (20:00)
[2020-02-24 00:29] VITALS: BP 89/55
[2020-02-24] MEDS: DEXTROSE 5% WATER 1,000 ML IV SCH (03:13)
[2020-02-24 04:31] VITALS: BP 87/62
[2020-02-24] MEDS: VANCOMYCIN 750 MG PREMIX 150 ML IV SCH ×2 (05:17→17:07)
[2020-02-24 07:49] LABS: CHLORIDE 114 mEq/L (98-107)
[2020-02-24 08:00] VITALS: BP 107/65
[2020-02-24 12:00] VITALS: BP 98/65
[2020-02-24] MEDS ORDERED: POTASSIUM CHLORIDE INJ 40 MEQ in DEXT 5% WATER 500 ML IV NR (14:00)
[2020-02-24 16:00] VITALS: BP 105/76
[2020-02-24 20:00] VITALS: BP 97/71
[2020-02-25] VITALS: BP 96/67
[2020-02-25 04:00] VITALS: BP 103/70
[2020-02-25] MEDS: VANCOMYCIN 750 MG PREMIX 150 ML IV SCH ×2 (05:22→17:26)
[2020-02-25] MEDS: DEXTROSE 5% WATER 1,000 ML IV SCH ×2 (05:25→22:10)
[2020-02-25 08:00] VITALS: BP 102/74
[2020-02-25] MEDS: MORPHINE SULFATE 2 MG/ML CPJ (NOT FOR IM USE) IV PRN (10:33)
[2020-02-25 12:00] VITALS: BP 107/61
[2020-02-25 16:00] VITALS: BP 126/60
[2020-02-25 20:00] VITALS: BP 103/74
[2020-02-26] VITALS: BP 105/67
[2020-02-26 04:00] VITALS: BP 100/62
[2020-02-26] MEDS: VANCOMYCIN 750 MG PREMIX 150 ML IV SCH (06:22)
[2020-02-26 08:00] VITALS: BP 118/75
[2020-02-26 12:00] VITALS: BP 98/60
[2020-02-26 16:00] VITALS: BP 106/76
[2020-02-26 20:00] VITALS: BP 98/65
[2020-02-26] MEDS: DEXTROSE 5% WATER 1,000 ML IV SCH (21:49)
[2020-02-27] VITALS: BP 90/65
[2020-02-27 04:00] VITALS: BP 108/70
[2020-02-27 06:57] LABS: CHLORIDE 110 mEq/L (98-107)
[2020-02-27] MEDS ORDERED: DEXTROSE 50% WATER 50ML SYRINGE IV SCH (07:45)
[2020-02-27 08:00] VITALS: BP 146/75
[2020-02-27 12:00] VITALS: BP 89/68
[2020-02-27] MEDS ORDERED: POTASSIUM CHLORIDE INJ 40 MEQ in DEXT 5% WATER 500 ML IV SCH (13:00)
[2020-02-27 16:00] VITALS: BP 91/59
[2020-02-27 20:00] VITALS: BP 94/70
[2020-02-27] MEDS: DEXTROSE 5% WATER 1,000 ML IV SCH (22:21)
[2020-02-28] VITALS: BP 100/56
[2020-02-28 04:00] VITALS: BP 107/49
[2020-02-28 08:00] VITALS: BP 94/60
[2020-02-28 08:10] LABS: CHLORIDE 109 mEq/L (98-107)
[2020-02-28] MEDS ORDERED: DEXTROSE 50% WATER 50ML SYRINGE IV SCH (09:00)
[2020-02-28 12:00] VITALS: BP 104/72
[2020-02-28 16:00] VITALS: BP 89/67
[2020-02-28] MEDS: DEXTROSE 5% WATER 1,000 ML IV SCH (18:50)
[2020-02-28 20:00] VITALS: BP 128/80
[2020-02-29] VITALS: BP 91/53
[2020-02-29 04:00] VITALS: BP 106/68
[2020-02-29 08:00] VITALS: BP 86/63
[2020-02-29] MEDS: DEXTROSE 5% WATER 1,000 ML IV SCH (08:45)
[2020-02-29 12:00] VITALS: BP 109/73
[2020-02-29] MEDS ORDERED: MORPHINE SULFATE 2 MG/ML CPJ (NOT FOR IM USE) IV PRN (12:45)
[2020-02-29] MEDS ORDERED: VANCOMYCIN 750 MG PREMIX 150 ML IV NR (13:00)
[2020-02-29] MEDS: IPRATROPIUM/ALBUTEROL 0.5-3(2.5)MG/3ML NEB HHN SCH (14:52)
[2020-02-29 16:00] VITALS: BP 105/60
[2020-02-29 20:00] VITALS: BP 93/57
[2020-03-01] VITALS: BP 83/58
[2020-03-01] MEDS: IPRATROPIUM/ALBUTEROL 0.5-3(2.5)MG/3ML NEB HHN SCH ×4 (02:10→21:16)
[2020-03-01] MEDS: DEXTROSE 5% WATER 1,000 ML IV SCH (03:58)
[2020-03-01 04:00] VITALS: BP 80/50
[2020-03-01 06:43] LABS: CHLORIDE 105 mEq/L (98-107)
[2020-03-01 08:00] VITALS: BP 98/68
[2020-03-01 12:00] VITALS: BP 76/50
[2020-03-01 16:00] VITALS: BP 116/55
[2020-03-01 20:00] VITALS: BP 84/48
[2020-03-02] VITALS: BP 99/73
[2020-03-02] MEDS: DEXTROSE 5% WATER 1,000 ML IV SCH ×2 (00:21→20:20)
[2020-03-02] MEDS: IPRATROPIUM/ALBUTEROL 0.5-3(2.5)MG/3ML NEB HHN SCH ×3 (00:23→16:16)
[2020-03-02 04:00] VITALS: BP 98/56
[2020-03-02 08:00] VITALS: BP 132/76
[2020-03-02 12:00] VITALS: BP 96/45
[2020-03-02 16:00] VITALS: BP 70/49
[2020-03-03] VITALS: BP 64/38
[2020-03-03 04:00] VITALS: BP 67/41
[2020-03-03 05:55] LABS: CHLORIDE 96 mEq/L (98-107)
[2020-03-03 06:20] LABS: HEMATOCRIT. 30.6 % (36.0-48.0); HEMOGLOBIN. 10.5 g/dL (12.0-16.0); MEAN CORPUSCULAR HEMOGLOBIN 28.7 pg (28.0-32.0); MEAN CORPUSCULAR VOLUME 83.4 fL (81.0-99.0); MEAN PLATELET VOLUME 11.9 fl (7.4-10.4); PLATELET 67 x1000/uL (130-400); RED BLOOD CELL COUNT 3.67 mill/uL (4.2-5.4)
[2020-03-03 07:24] LABS: PLATELET ESTIMATE DECREASED
[2020-03-03 08:00] VITALS: BP 62/31
[2020-03-03] MEDS: IPRATROPIUM/ALBUTEROL 0.5-3(2.5)MG/3ML NEB HHN SCH ×2 (08:00→15:40)
[2020-03-03] MEDS ORDERED: VANCOMYCIN 500 MG PREMIX 100 ML IV SCH (11:00)
[2020-03-03 12:00] VITALS: BP 54/26
[2020-03-03 16:00] VITALS: BP 52/23
[2020-03-03] MEDS ORDERED: MORPHINE SULFATE 2 MG/ML CPJ (NOT FOR IM USE) IV SCH (16:45)
== END 2020-03-03 19:00 | disposition expired | DRG 720 ==
LOC: ER 09:13 → MICUSO 10:15 → EDBEDREQ 10:31 → EDBEDREQSVC 10:31 → ENRESERV 11:32 → 7WST 02-13 03:04 → 6EST 02-14 23:58
PROVIDERS: ADMIT Internal Medicine; ATTEND Internal Medicine
PROC: 5A1955Z Respiratory Ventilation, Greater than 96 Consecutive Hours (ICD-10-PCS; principal; 2020-01-31)
PROC: 0BH17EZ Insertion of Endotracheal Airway into Trachea, Via Natural or Artificial Opening (ICD-10-PCS; 2020-01-31)
PROC: 06HY33Z Insertion of Infusion Device into Lower Vein, Percutaneous Approach (ICD-10-PCS; 2020-01-31)
PROC: B54MZZA Ultrasonography of Right Upper Extremity Veins, Guidance (ICD-10-PCS; 2020-02-05)
PROC: 05HY33Z Insertion of Infusion Device into Upper Vein, Percutaneous Approach (ICD-10-PCS; 2020-02-05)
PROC: 30233N1 Transfusion of Nonautologous Red Blood Cells into Peripheral Vein, Percutaneous Approach (ICD-10-PCS; 2020-02-17)
DX: A41.89 Other specified sepsis (principal); U07.1 COVID-19; R65.21 Severe sepsis with septic shock; E43 Unspecified severe protein-calorie malnutrition; J15.212 Pneumonia due to Methicillin resistant Staphylococcus aureus; J96.01 Acute respiratory failure with hypoxia; J96.02 Acute respiratory failure with hypercapnia; J12.89 Other viral pneumonia; D69.6 Thrombocytopenia, unspecified; Z66 Do not resuscitate; E11.22 Type 2 diabetes mellitus with diabetic chronic kidney disease; E87.2 Acidosis; E87.8 Other disorders of electrolyte and fluid balance, not elsewhere classified; J98.8 Other specified respiratory disorders; K21.9 Gastro-esophageal reflux disease without esophagitis; F32.9 Major depressive disorder, single episode, unspecified; F41.9 Anxiety disorder, unspecified; F20.9 Schizophrenia, unspecified; D64.9 Anemia, unspecified; G40.909 Epilepsy, unspecified, not intractable, without status epilepticus; E78.5 Hyperlipidemia, unspecified; N18.9 Chronic kidney disease, unspecified; I12.9 Hypertensive chronic kidney disease with stage 1 through stage 4 chronic kidney disease, or unspecified chronic kidney disease; A41.02 Sepsis due to Methicillin resistant Staphylococcus aureus; D72.810 Lymphocytopenia; E11.649 Type 2 diabetes mellitus with hypoglycemia without coma; E87.0 Hyperosmolality and hypernatremia; E87.6 Hypokalemia; I82.411 Acute embolism and thrombosis of right femoral vein; I82.431 Acute embolism and thrombosis of right popliteal vein; Z51.5 Encounter for palliative care; E78.00 Pure hypercholesterolemia, unspecified; I99.8 Other disorder of circulatory system; R23.0 Cyanosis; R74.0 Nonspecific elevation of levels of transaminase and lactic acid dehydrogenase [LDH]; R94.31 Abnormal electrocardiogram [ECG] [EKG]; E11.52 Type 2 diabetes mellitus with diabetic peripheral angiopathy with gangrene; F99 Mental disorder, not otherwise specified; S80.821A Blister (nonthermal), right lower leg, initial encounter; X58.XXXA Exposure to other specified factors, initial encounter; Y93.89 Activity, other specified; Y92.89 Other specified places as the place of occurrence of the external cause; Y99.8 Other external cause status; Z78.1 Physical restraint status; Z68.1 Body mass index [BMI] 19.9 or less, adult
CPT/HCPCS: 36415; 36600; 71045; 76937; 80048; 80053; 80202; 81003; 82375; 82553; 82728; 82805; 82962; 83036; 83605; 83615; 83735; 83880; 84100; 84145; 84478; 84484; 85025; 85379; 86140; 86850; 86900; 86920; 87070; 87077; 87635; 92610; 93005; 93923; 93970; 94002; 94003; 97162; C1725; C9113; J0330; J0456; J0692; J0696; J1630; J1650; J1815; J1940; J2060; J2270; J2370; J2543; J2704; J2765; J2920; J3010; J3370; J3475; J3480; J3490; J7030; J7050; J7060; J7070; J7608; P9016; P9047; U0003-CS